=== PATIENT | female | born 2000 | race Caucasian/White ===

== ENCOUNTER 2020-08-13 16:33 | Emergency (ER) | payer OTHER ==
[~2020-08-13 16:33] MED LIST: GUMMI BEAR MUL1 EACH PO; ZANTAC150 MG PO
[2020-08-13] MEDS ORDERED: IBUPROFEN600 MG PO (18:04)
== END 2020-08-13 18:09 | disposition home or self-care (01) ==
LOC: ER1 16:33
DX: S93.401A Sprain of unspecified ligament of right ankle, initial encounter (principal); W19.XXXA Unspecified fall, initial encounter; Y92.009 Unspecified place in unspecified non-institutional (private) residence as the place of occurrence of the external cause
CPT/HCPCS: 73590; 73610; 73630; 99283

== ENCOUNTER 2021-02-08 21:40 | Emergency (ER) | payer OTHER ==
[~2021-02-08 21:40] MED LIST changes: +IBUPROFEN600 MG PO
[2021-02-08 22:33] LABS: HEMOGLOBIN 12.8 gm/dl (12.3-15.3); RED BLOOD COUNT 5.11 M/UL (4.00-5.10); WHITE BLOOD COUNT 9.4 K/UL (4.5-11.0)
[2021-02-08 23:04] LABS: BUN/CREATININE RATIO 13 (0-10)
[2021-02-09] MEDS ORDERED: ZOFRAN ODT 4 MG4 MG SL (01:01)
== END 2021-02-09 01:17 | disposition home or self-care (01) ==
LOC: ER1 21:40
PROVIDERS: Physician Assistant
DX: R10.11 Right upper quadrant pain (principal); R11.2 Nausea with vomiting, unspecified; R19.7 Diarrhea, unspecified
CPT/HCPCS: 80053; 81001; 83690; 84703; 85025; 99284; Q9967

== ENCOUNTER → 2021-02-15 | Outpatient (CLI) | payer OTHER ==
[~2021-02-15] MED LIST changes: +ZOFRAN ODT 4 MG4 MG SL
== END ==
LOC: EXRD 08:23
DX: R10.11 Right upper quadrant pain (principal)
CPT/HCPCS: 76705